=== PATIENT | female | born 1955 | race Caucasian/White ===

== ENCOUNTER 2017-02-04 09:14 | Day surgery (SDC) | payer OTHER ==
[2017-02-03 08:34] VITALS: BMI 35.9
--- NOTE | 2017-02-03 16:10 | HP ---
- Patient Scheduled date of Surgery: 02/04/17 Scheduled Surgical Procedure: Phacoemulsification and cataract extraction with PCIOL Affected Eye: Right Chief Complaint (Indication for surgery): Decreased vision affecting ADLs - Ocular History Other Eye History: Other (OHTN, narrow angles, corneal abrasion OD) Eye Medications: vigamox 3/0, latanoprost qhs/qhs Previous Eye Surgery: none - Medical History Illnesses: Other (arthritis, smoker, vitamin d deficiency) Current Medications: Ambulatory Orders Meloxicam [Mobic] 15 mg PO DAILY 02/03/17 Multivitamin [One Daily] 1 each PO DAILY 02/03/17 Allergies/Adverse Reactions: Allergies Allergy/AdvReac Type Severity Reaction Status Date / Time No Known Allergies Allergy Verified 02/03/17 08:26 Ocular Examination - Best Corrected Visual Acuity Distance: Right eye: 20/60 glare Distance: Left eye: 20/30 - External/Slit Lamp Examination Abnormalities: decreased tbut, pingueculum, arcus - Intraocular Pressure Intraocular Pressure - Right eye: 14 Intraocular Pressure-Left eye: 14 - Lens Lens: 1+ NS 2+ cortical - Vitreous/Retina Vitreous/Retina: c:d 0.4 m/v/p wnl - Special Examination M - Right eye: +1.75-0.75 x 105 M - Left eye: +2.00 K - Right eye: 43/44 x 105 K - Left eye: 42.5/43 x 075 AL - Right eye: 23.39 AL - Left eye: 23.52 IOL bag: +21.0d hoya 251 IOL sulcus: +20.0 d hoya 231 IOL AC: +17.5 d MTA 4uo - Impression Impression: Cataract Right Eye - Plan Plan: Phacoemulsification and cataract extraction - IOL Right eye Post-hospital care will be provided in office on: 02/04/17
--- NOTE | 2017-02-03 16:11 | HP ---
History & Physical Update - History History: No Change - Physical Physical: No Change - Assessment Assessment: No Change - Plan Plan: No Change
[~2017-02-04 09:14] MED LIST: ACETAMINOPHEN 325 MG TABLET (FP) PO PRN
[2017-02-04] MEDS ORDERED: CIPROFLOXACIN 0.3% EYE DROPS 5 ML BOTTLE ONE (09:32)
[2017-02-04] MEDS ORDERED: DICLOFENAC SODIUM 0.1% OPHTHALMIC 2.5ML BOTTLE ONE (09:32)
[2017-02-04] MEDS ORDERED: TROPICAMIDE 1% OPHTH SOLN 15 ML BOTTLE ONE (09:32)
[2017-02-04] MEDS ORDERED: PHENYLEPHRINE 2.5% OPHTH SOLN 15 ML BOTTLE ONE (09:32)
[2017-02-04] MEDS: PHENYLEPHRINE 2.5% OPHTH SOLN 15 ML BOTTLE OP SCH ×3 (09:35→10:00)
[2017-02-04] MEDS: TROPICAMIDE 1% OPHTH SOLN 15 ML BOTTLE OP SCH ×3 (09:35→10:00)
[2017-02-04] MEDS: DICLOFENAC SODIUM 0.1% OPHTHALMIC 2.5ML BOTTLE OP SCH ×3 (09:35→10:00)
[2017-02-04] MEDS: CIPROFLOXACIN HCL 0.3% OPHTH 2.5ML BOTTLE OP SCH ×2 (09:50→10:00)
[2017-02-04] MEDS ORDERED: MIDAZOLAM HCL 2 MG/2 ML SINGLE DOSE VIAL ONE (10:39)
[2017-02-04] MEDS ORDERED: LIDOCAINE HCL 2% JELLY (5 ML/TUBE) TP ONE (10:54)
[2017-02-04] MEDS ORDERED: POVIDONE-IODINE 5% OPHTHALMIC PREP 30 ML SOLUTION OD ONE (11:10)
[2017-02-04] MEDS ORDERED: LIDOCAINE HCL 1% PRESERVATIVE FREE - 30ML VIAL IO ONE (11:18)
[2017-02-04] MEDS ORDERED: BSS (NA/CA/MG/K) BALANCED SALT SOLUTION OPHTH SOLN 15 ML BOTTLE OD ONE (11:18)
[2017-02-04] MEDS ORDERED: CHONDROITIN SU A/HYALUR SOD 1 KIT IO ONE (11:18)
[2017-02-04] MEDS ORDERED: EPINEPHrine/PF 1 MG/1 ML (1:1,000) AMPULE SQ ONE (11:26)
[2017-02-04] MEDS ORDERED: TOBRAMYCIN/DEXAMETHASONE OPHTH. OINTMENT 1 TUBE OD ONE (11:31)
--- NOTE | 2017-02-04 11:38 | OP ---
Ophthalmology Operative Note Pre-Operative Diagnosis: Cataract Affected Eye: Right Operation: Phacoemulsification and cataract extraction with PCIOL Findings: cataract right eye Post-Operative Diagnosis: Same as Pre-op Cargo Trimmer: None Anesthesiologist: Luis Booker Anesthesia: Topical Specimens Removed: none Estimated blood loss: none Drains & Tubes with Location: none Operative Report Dictated: Yes
[2017-02-04 12:22] VITALS: TEMP 97.8
--- NOTE | 2017-02-04 15:57 | OP ---
DATE OF OPERATION: 02/04/2017 PREOPERATIVE DIAGNOSIS: Cataract, right eye. POSTOPERATIVE DIAGNOSIS: Cataract, right eye. PROCEDURE: Phacoemulsification and cataract extraction with insertion of posterior chamber intraocular lens, right eye. SURGEON: Magali Robertson MD DIRECTOR [employer]: None. ANESTHESIA: Topical. ANESTHESIOLOGIST: Luis Booker CRNA OPERATIVE PROCEDURE: The patient received viscous lidocaine gel in the holding area and then was gently sedated, prepped and draped in the usual sterile fashion so as to expose only the right eye. Ophthalmic Betadine was instilled into the inferior fornix, and the lashes were taped out of the surgical field. An eyelid speculum was placed into the right eye. A paracentesis was made in superior clear cornea at the limbus. Next, 0.5 mL of nonpreserved lidocaine 1% was injected into the anterior chamber. Viscoelastic material was then instilled into the anterior chamber via the paracentesis. A 2.4-mm keratome was then used to create the main incision in temporal clear cornea at the limbus. A continuous curvilinear capsulorrhexis was performed using a cystotome and Utrata forceps. Hydrodissection of the lens cortex was performed using BSS on a cannula until the nucleus was noted to be freely rotating. The phacoemulsification tip was then inserted via the main wound and used to sculpt 2 perpendicular grooves into the lens nucleus. The nucleus was crackled into 4 quadrants. Each quadrant was lifted out of the capsule into the iris plane and individually phacoemulsified. The remaining cortical material was then aspirated using the irrigation and aspiration port. The capsular bag was inflated using Provisc. A preloaded Hoya lens model 251, power +21.0 diopters was injected into the capsular bag and centered using a Sinskey hook. The residual viscoelastic material was removed from the anterior chamber using irrigation and aspiration. The wound edges were hydrated using BSS. The wound was tested for leakage and was found to be watertight. Therefore, TobraDex ointment was placed in the eye. The speculum was removed from the eye, and a sterile dressing and shield were placed over the eye. The patient was transferred to the recovery room in stable condition and told to follow up in 1 day. MAGALI ROBERTSON M.D. [id number]
[2017-02-04 16:03] VITALS: BP 152/90; PULSE 90
== END 2017-02-04 13:15 | disposition home or self-care (01) ==
LOC: JASU-SURG 09:14
PROVIDERS: ATTEND Ophthalmology
PROC: 08RJ3JZ Replacement of Right Lens with Synthetic Substitute, Percutaneous Approach (ICD-10-PCS; principal; 2017-02-04 10:30)
DX: H26.9 Unspecified cataract (principal)

== ENCOUNTER 2017-03-04 06:07 | Day surgery (SDC) | payer OTHER ==
[2017-03-03 11:55] VITALS: BMI 36.7
--- NOTE | 2017-03-03 16:35 | HP ---
- Patient Scheduled date of Surgery: 03/04/17 Scheduled Surgical Procedure: Phacoemulsification and cataract extraction with PCIOL Affected Eye: Left Chief Complaint (Indication for surgery): Decreased vision affecting ADLs - Ocular History Other Eye History: Other (OHTn and narrow angles) Eye Medications: cipro, latanoprost qhs ou Previous Eye Surgery: s/p ce/pciol OD +21.0 d hoya 251 - Medical History Illnesses: Other (arthritis, smoker) Current Medications: Ambulatory Orders Meloxicam [Mobic] 15 mg PO DAILY 02/03/17 Multivitamin [One Daily] 1 each PO DAILY 02/03/17 Atorvastatin Ca [Lipitor] 20 mg PO HS 03/03/17 Latanoprost 0.005% Eye Drops [Xalatan 0.005% Eye Drops -] 1 drop OU HS 03/03/17 Multivitamin [One Daily] 1 each PO DAILY 03/03/17 Allergies/Adverse Reactions: Allergies Allergy/AdvReac Type Severity Reaction Status Date / Time No Known Allergies Allergy Verified 02/03/17 08:26 Ocular Examination - Best Corrected Visual Acuity Distance: Right eye: 20/30+2 Distance: Left eye: 20/40 - External/Slit Lamp Examination Abnormalities: decreased tbut, pingueculm, shallow and quiet - Intraocular Pressure Intraocular Pressure - Right eye: 15 Intraocular Pressure-Left eye: 14 - Lens Lens: 1+ NS 2+ cortical change - Vitreous/Retina Vitreous/Retina: c:d 0.4 m/v/p wnl - Special Examination M - Right eye: plano-1.25 x 035 M - Left eye: +2.00 K - Right eye: 42.5/43.25 x 125 K - Left eye: 42.5/43 x 070 AL - Right eye: 23.39 AL - Left eye: 23.52 IOL bag: +21.0 d hoya 251 IOL sulcus: +20.0 d hoya 231 IOL AC: +18.0 d MTA 4uo - Impression Impression: Cataract Left Eye - Plan Plan: Phacoemulsification and cataract extraction - IOL Left eye Post-hospital care will be provided in office on: 03/05/17
--- NOTE | 2017-03-03 16:37 | HP ---
History & Physical Update - History History: No Change - Physical Physical: No Change - Assessment Assessment: No Change - Plan Plan: No Change
[~2017-03-04 06:07] MED LIST changes: +TOBRAMYCIN/DEXAMETHASONE OPHTH. OINTMENT 1 TUBE OS ONE
[2017-03-04] MEDS ORDERED: TROPICAMIDE 1% OPHTH SOLN 15 ML BOTTLE ONE (06:15)
[2017-03-04] MEDS ORDERED: PHENYLEPHRINE 2.5% OPHTH SOLN 15 ML BOTTLE ONE (06:15)
[2017-03-04] MEDS ORDERED: CIPROFLOXACIN 0.3% EYE DROPS 5 ML BOTTLE ONE (06:15)
[2017-03-04] MEDS ORDERED: DICLOFENAC SODIUM 0.1% OPHTHALMIC 2.5ML BOTTLE ONE (06:15)
[2017-03-04] MEDS: TROPICAMIDE 1% OPHTH SOLN 15 ML BOTTLE OP SCH ×3 (06:30→07:05)
[2017-03-04] MEDS: DICLOFENAC SODIUM 0.1% OPHTHALMIC 2.5ML BOTTLE OP SCH ×3 (06:30→07:05)
[2017-03-04] MEDS: PHENYLEPHRINE 2.5% OPHTH SOLN 15 ML BOTTLE OP SCH ×3 (06:30→07:05)
[2017-03-04] MEDS: CIPROFLOXACIN HCL 0.3% OPHTH 2.5ML BOTTLE OP SCH ×3 (06:30→07:05)
[2017-03-04 06:39] VITALS: TEMP 98.7
[2017-03-04] MEDS ORDERED: POVIDONE-IODINE 5% OPHTHALMIC PREP 30 ML SOLUTION ONE (07:09)
[2017-03-04] MEDS ORDERED: LIDOCAINE HCL/PF 1% SDV 5ML VIAL ONE (07:09)
[2017-03-04] MEDS ORDERED: TOBRAMYCIN/DEXAMETHASONE OPHTH. OINTMENT 1 TUBE ONE (07:12)
[2017-03-04] MEDS ORDERED: EPINEPHrine/PF 1 MG/1 ML (1:1,000) AMPULE ONE (07:12)
[2017-03-04] MEDS ORDERED: LIDOCAINE HCL 2% JELLY (5 ML/TUBE) ONE (07:12)
[2017-03-04] MEDS ORDERED: LIDOCAINE HCL 2% JELLY (5 ML/TUBE) TP ONE (07:20)
[2017-03-04] MEDS ORDERED: PHENYLEPHRINE HCL 10 MG/1 ML SINGLE DOSE VIAL ONE (07:36)
[2017-03-04] MEDS ORDERED: LIDOCAINE HCL/PF 2% SDV 5ML VIAL ONE (07:36)
[2017-03-04] MEDS ORDERED: ePHEDrine SULFATE 50 MG/1 ML AMPULE ONE (07:37)
[2017-03-04] MEDS ORDERED: SUCCINYLCHOLINE CHLORIDE 200 MG/10 ML VIAL ONE (07:37)
[2017-03-04] MEDS ORDERED: MIDAZOLAM HCL 2 MG/2 ML SINGLE DOSE VIAL ONE ×2 (07:37)
[2017-03-04] MEDS ORDERED: POVIDONE-IODINE 5% OPHTHALMIC PREP 30 ML SOLUTION OS ONE (07:43)
[2017-03-04] MEDS ORDERED: BSS (NA/CA/MG/K) BALANCED SALT SOLUTION OPHTH SOLN 15 ML BOTTLE OS ONE (07:50)
[2017-03-04] MEDS ORDERED: CHONDROITIN SU A/HYALUR SOD 1 KIT IO ONE (07:50)
[2017-03-04] MEDS ORDERED: LIDOCAINE HCL 1% PRESERVATIVE FREE - 30ML VIAL IO ONE (07:50)
[2017-03-04] MEDS ORDERED: EPINEPHrine/PF 1 MG/1 ML (1:1,000) AMPULE SQ ONE (07:57)
[2017-03-04] MEDS ORDERED: ACETYLCHOLINE 1:100 INTRA-OCUL 20 MG/2 ML KIT ONE (08:16)
[2017-03-04] MEDS ORDERED: ACETYLCHOLINE 1:100 INTRA-OCUL 20 MG/2 ML KIT IO ONE (08:18)
[2017-03-04] MEDS ORDERED: TOBRAMYCIN/DEXAMETHASONE OPHTH. OINTMENT 1 TUBE OS ONE (08:22)
--- NOTE | 2017-03-04 08:31 | OP ---
Ophthalmology Operative Note Pre-Operative Diagnosis: Cataract Affected Eye: Left Operation: Phacoemulsification and cataract extraction with PCIOL Findings: cataract left eye Post-Operative Diagnosis: Same as Pre-op Dealership Manager: None Anesthesiologist: Bandar Candelaria Anesthesia: Topical Specimens Removed: none Estimated blood loss: none Drains & Tubes with Location: none Operative Report Dictated: Yes
--- NOTE | 2017-03-04 09:06 | OP ---
DATE OF OPERATION: 03/04/2017 PREOPERATIVE DIAGNOSIS: Cataract, left eye. POSTOPERATIVE DIAGNOSIS: Cataract, left eye. PROCEDURE: Phacoemulsification and cataract extraction with insertion of posterior chamber intraocular lens, left eye. SURGEON: Magali Robertson MD SENIOR INSIGHT MANAGER: None. ANESTHESIA: Topical. ANESTHESIOLOGIST: Bandar Charlton CRNA OPERATIVE PROCEDURE: Following satisfactory intravenous sedation, the patient received viscous lidocaine jelly topically and was then prepped and draped in the usual sterile fashion, so as to expose only the left eye. Ophthalmic Betadine was instilled into the inferior fornix, the lashes were taped out of the surgical field, and an eyelid speculum was placed into the left eye. A paracentesis was made in inferior clear cornea at the limbus. Then, 0.5 mL of nonpreserved lidocaine 1% was injected into the anterior chamber. Viscoelastic material was then instilled into the anterior chamber via the paracentesis. A 2.4-mm keratome was used to create the main incision in temporal clear cornea at the limbus. A continuous curvilinear capsulorrhexis was performed using a cystotome and Utrata forceps. Hydrodissection of the lens cortex was performed using BSS on a cannula until the nucleus was noted to be freely rotating. The phacoemulsification tip was inserted via the main wound and used to sculpt 2 perpendicular grooves into the lens nucleus. The nucleus was cracked into 4 quadrants using 2 instruments, and each quadrant was lifted out of the capsule into the iris plane and individually phacoemulcified. The remaining cortical material was then aspirated using the irrigation and aspiration port. The capsular bag was inflated using Provisc and a preloaded Hoya lens, model 251, power +21.0 diopter was injected into the capsular bag and centered using a Sinskey hook. The residual viscoelastic material was removed from the anterior chamber using irrigation and aspiration. The lens was tilting anteriorly, therefore Miochol was used to constrict the pupil, and the lens was again centered. The wound edges were then hydrated using BSS. It was found to be watertight. Therefore, TobraDex ointment was placed in the eye, the speculum was removed from the eye, and the eyelid was closed with sterile dressing and shield were placed over the eye. The patient was transferred to the recovery room in stable condition, told to return in 1 day. MAGALI ROBERTSON M.D. [id number]
[2017-03-04 09:13] VITALS: BP 144/82; PULSE 88
== END 2017-03-04 09:15 | disposition home or self-care (01) ==
LOC: JASU-SURG 06:07
PROVIDERS: ATTEND Ophthalmology
PROC: 08RK3JZ Replacement of Left Lens with Synthetic Substitute, Percutaneous Approach (ICD-10-PCS; principal; 2017-03-04 07:30)
DX: H26.9 Unspecified cataract (principal)